=== PATIENT | female | born 1940 | race Caucasian/White ===

== ENCOUNTER → 2017-04-16 | Outpatient (CLI) | payer MEDICARE ==
[~2017-04-16] MED LIST: ALBU1AER INH; ALPR0.5T99 PO; AMLO5TAB96 PO; ASPI325T PO; ATOR40TA PO; BROV15NE INH; DUONI INH; FOLI800T12 PO; METHY10 PO; METO100T PO; OMEP20TA39 PO; OYST500T77 PO; POTA-243 PO; PRED20 PO; PROZ40CA PO; QUIN324C PO; SYMB80AE INH; SYNT88TA PO; TAB-TAB PO; TORS1TAB12 PO; WAL-10TA2 PO; Z.0.OXYGENDME NC; ZITH250T PO
[2017-04-16 07:38] LABS: ALBUMIN 3.8 GM/DL (3.4-5.0); ALT (GPT) 24 U/L (10-53); AST (GOT) 28 U/L (15-37); BICARBONATE 29.4 MEQ/L (21.0-32.0); BLOOD UREA NITROGEN 14 MG/DL (7-18); CALCIUM 9.1 MG/DL (8.5-10.1); CHLORIDE 107 MEQ/L (98-107); CHOLESTEROL 157 MG/DL (120-200); CREATININE 0.99 MG/DL (0.50-1.00); GLOMERULAR FILTRATION RATE 54 ML/MIN (>89); GLUCOSE,FASTING 95 MG/DL (74-99); SODIUM (NA) 144 MEQ/L (136-145)
[2017-04-16 07:43] LABS: ALKALINE PHOSPHATASE 84 U/L (45-117); CHOLESTEROL/ HDL RATIO 2.47 RATIO; HDL CHOLESTEROL 63.5 MG/DL (40.0-60.0); LDL CHOLESTEROL 71 MG/DL (0-99); TOTAL BILIRUBIN ADULT 0.5 MG/DL (0.2-1.0); TOTAL PROTEIN 7.2 GM/DL (6.4-8.2); TRIGLYCERIDES 112 MG/DL (42-150)
[2017-04-16 16:00] LABS: HEMOGLOBIN A1C 5.4 % (4.3-6.0)
== END ==
LOC: CLAB 06:36
PROVIDERS: ATTEND Internal Medicine
DX: E78.5 Hyperlipidemia, unspecified (principal); E53.8 Deficiency of other specified B group vitamins; I10 Essential (primary) hypertension; E03.9 Hypothyroidism, unspecified; R73.01 Impaired fasting glucose
CPT/HCPCS: 36415; 80053; 80061; 82607; 83036; 84443